=== PATIENT | male | born 1955 | race African-American/Black ===

== ENCOUNTER 2017-04-17 11:03 | Emergency (ER) | payer SELFPAY ==
[2017-04-17 11:14] VITALS: BP 201/105; BMI 38.0
--- NOTE | 2017-04-17 12:37 | DR.GENAD ---
HPI - PCP Primary Care Physician: [email or web address] - HPI Comment HPI Comment: HISTORY BELOW. - Complaint/Symptoms Chief Complaint Doctors Comments: PAIN, RASH AND DRAINAGE AROUNG PENIS DISTALLY.THE FORESKIN CANNOT BE [id number]. PATIENT IS NOT CIRCUMSIZE. NO FEVER. GLUCOSE ELEVATED. REMOTE HISTORY OF DM BUT NOT ON MEDICATION. Chief Complaint:: BODY WEAK, HURTING IN PRIVATE AREA, OFF BALANCE Self Treatment fo Chief Complaint: CAUGHT PENIS IN ZIPPER, HAS BEEN MEDICATING WITH OTC ANTIBIOTIC. - Nurses notes reviewed Nurses Notes Review: Yes - Source History Provided: Patient - Mode of Arrival Mode of Arrival: Ambulatory - Timing Onset of Chief Complaint: 04/10/17 Came on: Suddenly - Duration Duration: Constant Duration: Days - Severity Severity: Moderate PMH - PMH Past Medical History: Yes Past Medical History: Diabetes, Hypertension Past Surgical History: No - Family History History of Family Medical Conditions: No - Social History Type of Tobacco Use: Cigarettes Does any household member use tobacco: No Alcohol Use: DAILY Do you use any recreational Drugs:: No Lives With: Significant Other Lives Where: Home - infectious screening In the last 2 months have you had wt loss of >10#?: NO Have you had fever, night sweats or hemotysis?: No Have you traveled outside the country in the last 6 months?: No Isolation: Standard ROS - Review of Systems Constitutional: Weakness, Fatigue. negative: Chills, Fever Eyes: No Symptoms Reported. negative: Eye Pain, Discharge ENTM: No Symptoms Reported. negative: Ear Pain, Nose Discharge, Nose Congestion , Throat Pain Respiratoy: No Symptoms Reported. negative: Productive Cough, Non-Productive Cough, Short of Breath, Wheezing, Hemoptysis Cardiovascular: No Symptoms Reported. negative: Chest Pain Gastrointestinal/Abdominal: No Symptoms Reported. negative: Abdominal Pain, Diarrhea, Nausea, Vomiting Genitourinary: Discharge (AROUND PENIS). negative: Dysuria, Frequency, Hematuria Neurological: Weakness Musculoskeletal: Muscle Pain Integumentary: Lesions (AROUND DISTAL PENIS WITH PHIMOSIS) Hematologic/Lymphatic: No Symptoms Reported Endocrine: Increased Thirst, Increased Urine All Other Systems: Reviewed and Negative PE - Vital Signs Vitals: Temperature 98.5 F Pulse Rate 92 Respiratory Rate 20 Blood Pressure 201/105 O2 Sat by Pulse Oximetry 96 - General Limitations: No Limitations General Appearance: Alert - Head Head Exam: Normal Inspection - Eyes Eye exam: Normal Appearance - ENT ENT Exam: Normal External Ear Exam External Ear Exam: Normal External Inspection TM/Canal Exam: Bilateral Normal Nose Exam: Normal Nose Exam Mouth Exam: Normal Inspection Throat Exam: Normal Inspection - Neck Neck Exam: Trachea Midline - Chest Chest Inspection: Symmetric Chest Wall Rise - Respiratory Respiratory Exam: Normal Lung Sounds Bilat Respiratory Exam: Bilateral Clear to Auscultation - Cardiovascular Cardiovascular Exam: Regular Rate, Normal Rhythm, Normal Heart Sounds - Abdominal Exam Abdominal Exam: Normal Bowel Sounds, Soft, Other (PHIMOSIS WITH DRAINAGE AND SKIN LESION DISTAL PENIA). negative: Tenderness - Extremities Extremities Exam: Normal Inspection - Back Back Exam: Normal Inspection - Neurologic Neurological Exam: Alert, Oriented X3 - Psychiatric Psychiatric Exam: Anxious - Skin Skin Exam: Rash, Erythema MDM - Differential Diagnosis Differential Diagnosis: PHIMOSIS WITH SKIN INFECTION, BALANITIS, DIABETES MELLITUS Course - Treatment Treatment: SEE ORDERS. - Consultation Consultation Comments: DISCUSS PATIENT WITH DR. BABCOCK. HE WILL SEE PATIENT IN HIS OFFICE 14:00 PM TOMORROW. - Education/Counseling Education/Counseling: Patient, Family, Education Educated On: Treatment, Diagnosis, Needs for Follow Up ROR - Labs Reviewed Laboratory Results Reviewed?: Yes Result Diagrams: 04/17/17 12:51 04/17/17 12:51 Laboratory: 04/17/17 14:13 Urine,Clean Catch Urine Culture - Final 04/17/17 13:28 Penis Wound Culture - Preliminary WBC 7.9 X10^3/uL (3.6-10.0) 04/17/17 12:51 RBC 5.06 X10^6/uL (4.7-6.0) 04/17/17 12:51 Hgb 15.3 g/dL (13.5-18.0) 04/17/17 12:51 Hct 44.5 % (42.0-54.0) 04/17/17 12:51 MCV 87.9 fL (80.0-100.0) 04/17/17 12:51 MCH 30.3 pg (27.0-34.0) 04/17/17 12:51 MCHC 34.4 g/dL (33.0-35.0) 04/17/17 12:51 RDW 13.7 % (11.6-16.5) 04/17/17 12:51 Plt Count 123 X10^3/uL (150.0-450.0) L 04/17/17 12:51 MPV 10.3 fL (7.4-11.0) 04/17/17 12:51 Neut % 73.0 % (42.0-75.0) 04/17/17 12:51 Lymph % 17.3 % (21.0-51.0) L 04/17/17 12:51 [place] % 8.3 % (0.0-13.0) 04/17/17 12:51 Eos % 0.8 % (0.9-2.9) L 04/17/17 12:51 Baso % 0.6 % (0.2-1.0) 04/17/17 12:51 Neut # 5.8 x10^3/uL (2.2-4.8) H 04/17/17 12:51 Lymph # 1.4 X10^3/uL (1.3-2.9) 04/17/17 12:51 [place] # 0.7 x10^3/uL (0.3-0.8) 04/17/17 12:51 Eos # 0.1 x10^3/uL (0.0-0.2) 04/17/17 12:51 Baso # 0.0 X10^3/uL (0.0-0.1) 04/17/17 12:51 Absolute Nucleated RBC 0.1 /100WBC 04/17/17 12:51 Sodium 135 mmol/L (136-145) L 04/17/17 12:51 Corrected Sodium 140 mmol/L (136-145) 04/17/17 12:51 Potassium 4.2 mmol/L (3.5-5.1) 04/17/17 12:51 Chloride 99 mmol/L (98-107) 04/17/17 12:51 Carbon Dioxide 27.5 mmol/L (21-32) 04/17/17 12:51 BUN 8 mg/dL (7-18) 04/17/17 12:51 Creatinine 0.87 mg/dL (0.70-1.30) 04/17/17 12:51 Est GFR (MDRD) Af Amer > 60 (>60) 04/17/17 12:51 Est GFR (MDRD) Non-Af > 60 (>60) 04/17/17 12:51 Glucose 295 mg/dL (65-99) H 04/17/17 12:51 Hemoglobin A1c 11.4 % (4.5-6.2) H 04/17/17 12:51 Lactic Acid 1.5 mmol/L (0.4-2.0) 04/17/17 12:51 Calcium 8.7 mg/dL (8.5-10.1) 04/17/17 12:51 Corrected Calcium 9.4 mg/dL (8.5-10.1) 04/17/17 12:51 Total Bilirubin 0.60 mg/dL (0.2-1.0) 04/17/17 12:51 AST 19 Units/L (15-37) 04/17/17 12:51 ALT 17 Units/L (12-78) 04/17/17 12:51 Alkaline Phosphatase 70 Units/L (46-116) 04/17/17 12:51 Creatine Kinase 164 Units/L (39-308) 04/17/17 12:51 CK-MB (CK-2) < 1.0 ng/mL (0-4.0) 04/17/17 12:51 CK/CKMB % Calc 0.6 % (<4) 04/17/17 12:51 Troponin I < 0.02 ng/mL (0-1.5) 04/17/17 12:51 Total Protein 7.4 g/dL (6.4-8.2) 04/17/17 12:51 Albumin 3.1 g/dL (3.4-5.0) L 04/17/17 12:51 Globulin 4.3 g/dL (2.5-4.5) 04/17/17 12:51 Albumin/Globulin Ratio 0.7 Ratio (1.1-2.1) L 04/17/17 12:51 Specimen Type Clean catch urine 04/17/17 14:13 Urine Color [place] (YELLOW) 04/17/17 14:13 Urine Appearance Hazy (CLEAR) 04/17/17 14:13 Urine pH 6.0 (5.0 - 8.0) 04/17/17 14:13 Ur Specific [place] 1.020 (1.000-1.030) 04/17/17 14:13 Urine Protein 2+ (NEGATIVE) 04/17/17 14:13 Urine Glucose (UA) 4+ (NEGATIVE) 04/17/17 14:13 Urine Ketones 3+ (NEGATIVE) 04/17/17 14:13 Urine Occult Blood 3+ (NEGATIVE) 04/17/17 14:13 Urine Nitrite Negative (NEGATIVE) 04/17/17 14:13 Urine Bilirubin 1+ (NEGATIVE) 04/17/17 14:13 Urine Urobilinogen 1+ (NORMAL) 04/17/17 14:13 Ur Leukocyte Esterase 3+ (NEGATIVE) 04/17/17 14:13 Urine RBC 20-30 /HPF (NEGATIVE) 04/17/17 14:13 Urine WBC 25-35 /HPF (NEGATIVE) 04/17/17 14:13 Ur Squamous Epith Cells Few /HPF (NEGATIVE) 04/17/17 14:13 Urine Bacteria Trace /HPF (NEGATIVE) 04/17/17 14:13 Urine Mucus Moderate /HPF (NEGATIVE) 04/17/17 14:13 Urine Sperm Few /HPF (NEGATIVE) 04/17/17 14:13 Ur Culture Indicated? Yes/culture set up 04/17/17 14:13 Acetone, Semi-Quant Small (NEGATIVE) H 04/17/17 12:51 Ur C. trach DNA (PCR) Not detected (NOT DETECT) 04/17/17 16:55 U N.gonorrhoeae DNA PCR Not detected (NOT DETECT) 04/17/17 16:55 - XRAY XRAY Interpreted by: Radiologist XRAY Findings: REPORT DISCUSS WITH PATIENT - EKG Rhythm: NSR (EKG NOTED) - Diagnosis Discharge Problem: Phimosis, Balanitis Diabetes mellitus Qualifiers: Diabetes mellitus type: type 2 Diabetes mellitus complication status: with unspecified complications Diabetes mellitus human resources admin insulin use: without human resources admin use Qualified Code(s): E11.8 - Type 2 diabetes mellitus with unspecified complications UTI (urinary tract infection) Qualifiers: Urinary tract infection type: urethritis Qualified Code(s): N34.2 - Other urethritis - Discharge Plan Disposition: 01 HOME, SELF-CARE Condition: Stable - Follow ups/Referrals Follow ups/Referrals: N[facility],None [Primary Care Provider] - 3 days NIA BABCOCK [STAFF PHYSICIAN] - 04/18/17 - Instructions Instructions: Phimosis, Pediatric, Urinary Tract Infection, Adult, [id number] , Hyperglycemia, [id number] Additional Instructions: RETURN TO ED IF WORSE.. SEE DR. BABCOCK AT 14:00 PM TOMORROW.
[2017-04-17 13:13] LABS: HEMOGLOBIN A1C 11.4 % (4.5-6.2)
[2017-04-17 13:16] LABS: LACTIC ACID 1.5 mmol/L (0.4-2.0)
[2017-04-17 13:17] LABS: BLOOD UREA NITROGEN 8 mg/dL (7-18); CALCIUM 8.7 mg/dL (8.5-10.1); CARBON DIOXIDE 27.5 mmol/L (21-32); CHLORIDE 99 mmol/L (98-107); COR NA(FOR HYPERGLY) 140 mmol/L (136-145); CREATININE 0.87 mg/dL (0.70-1.30); SODIUM 135 mmol/L (136-145); TROPONIN I < 0.02 ng/mL (0-1.5); eGFR BLACK RACES > 60 (>60); eGFR NON BLACK RACES > 60 (>60)
[2017-04-17 13:18] LABS: BASOPHILS % (AUTO) 0.6 % (0.2-1.0); EOSINOPHILS # (AUTO) 0.1 x10^3/uL (0.0-0.2); EOSINOPHILS % (AUTO) 0.8 % (0.9-2.9); HEMATOCRIT 44.5 % (42.0-54.0); HEMOGLOBIN 15.3 g/dL (13.5-18.0); LYMPHOCYTES # (AUTO) 1.4 X10^3/uL (1.3-2.9); LYMPHOCYTES % (AUTO) 17.3 % (21.0-51.0); MEAN CORPUSCULAR HEMOGLOBIN 30.3 pg (27.0-34.0); MEAN CORPUSCULAR HGB CONC 34.4 g/dL (33.0-35.0); MEAN CORPUSCULAR VOLUME 87.9 fL (80.0-100.0); MEAN PLATELET VOLUME 10.3 fL (7.4-11.0); MONOCYTES # (AUTO) 0.7 x10^3/uL (0.3-0.8); MONOCYTES % (AUTO) 8.3 % (0.0-13.0); NEUTROPHILS # (AUTO) 5.8 x10^3/uL (2.2-4.8); PLATELET COUNT 123 X10^3/uL (150.0-450.0); RED BLOOD COUNT 5.06 X10^6/uL (4.7-6.0); RED CELL DISTRIBUTION WIDTH 13.7 % (11.6-16.5); WHITE BLOOD COUNT 7.9 X10^3/uL (3.6-10.0)
[2017-04-17 13:22] LABS: ALANINE AMINOTRANSFERASE 17 Units/L (12-78); ALBUMIN 3.1 g/dL (3.4-5.0); ALKALINE PHOSPHATASE 70 Units/L (46-116); ASPARTATE AMINO TRANSFERASE 19 Units/L (15-37); COR CA(FOR HYPOALB) 9.4 mg/dL (8.5-10.1); CREATINE KINASE 164 Units/L (39-308); CREATINE KINASE MB < 1.0 ng/mL (0-4.0); TOTAL PROTEIN 7.4 g/dL (6.4-8.2)
[2017-04-17 13:23] LABS: CKMB % 0.6 % (<4)
[2017-04-17 14:22] LABS: BILIRUBIN,URINE 1+ (NEGATIVE); BLOOD/HEMOGLOBIN,URINE 3+ (NEGATIVE); GLUCOSE, URINE 4+ (NEGATIVE); KETONES,URINE 3+ (NEGATIVE); LEUKOCYTE ESTERASE ,URINE 3+ (NEGATIVE); NITRITES,URINE NEGATIVE (NEGATIVE); PROTEIN,URINE 2+ (NEGATIVE); UROBILINOGEN,URINE 1+ (NORMAL)
[2017-04-17 14:39] LABS: APPEARANCE,URINE HAZY (CLEAR); BACTERIA,URINE TRACE /HPF (NEGATIVE); COLOR,URINE AMBER (YELLOW); MUCUS,URINE MODERATE /HPF (NEGATIVE); RBC,URINE 20-30 /HPF (NEGATIVE); SPERM,URINE FEW /HPF (NEGATIVE); SQUAMOUS EPITHELIAL CELL,UR FEW /HPF (NEGATIVE)
[2017-04-17] MEDS ORDERED: ROCEPHIN VIAL 1 GM IM ONE (15:13)
[2017-04-17] MEDS ORDERED: ZITHROMAX TAB 250 MG PO ONE ×2 (15:46→15:55)
[2017-04-17] MEDS ORDERED: VIBRAMYCIN PO ONE ×2 (15:48→15:56)
[2017-04-17] MEDS ORDERED: BACTRIM DS TAB PO ONE ×2 (15:48→15:56)
[2017-04-17] MEDS ORDERED: ROCEPHIN VIAL 1 GM ONE (15:56)
[2017-04-17] MEDS ORDERED: XYLOCAINE 1 % (PLAIN) ONE (15:56)
[2017-04-17] MEDS ORDERED: DIABETA ONE (15:58)
--- NOTE | 2017-04-17 16:38 | RAD ---
HISTORY: Body weak. Off balance. Study: Chest one view Comparison: None. Findings: The trachea is midline. The cardiac silhouette is unremarkable. The lungs are clear without focal i nfiltrate or effusion. The bony thorax is unremarkable. IMPRESSION: 1. No acute cardiopulmonary disease. Reported By:
[2017-04-17] MEDS ORDERED: DIABETA PO SCH (17:00)
[2017-04-17 19:11] LABS: CHLAMYDIA TRACH URINE NOT DETECTED (NOT DETECT)
[2017-04-17] MEDS ORDERED: SNACK - Diabetic Appropriate PO SCH (20:00)
== END 2017-04-17 17:25 | disposition home or self-care (01) ==
LOC: ER 11:21
DX: N47.1 Phimosis (principal); N34.2 Other urethritis; N48.1 Balanitis; E11.8 Type 2 diabetes mellitus with unspecified complications
CPT/HCPCS: 36415; 71010; 80053; 81001; 82009; 82550; 82553; 83036; 83605; 84484; 85025; 87070; 87075; 87086; 87491; 87591; 93005; 93010; 96372; 99283; Q0144; J0696; J2001